=== PATIENT | male | born 1965 | race Caucasian/White ===

== ENCOUNTER → 2020-07-01 | Outpatient (CLI) | payer OTHER ==
[~2020-07-01] MED LIST: ENOXAPARIN120 MG/0.1 SUBQ; ENOXAPARIN40 MG/0.1 SUBQ; FUROSEMIDE 40 M40 M1 PO; K-DUR10 MEQ PO; LISINOPRIL2.5 MG PO; METOPROLOL SUCC25 M1 PO; ROSUVASTATIN CA20 MG PO; WARFARIN SODIUM1 MG PO; WARFARIN SODIUM5 MG PO
== END ==
LOC: M.LAB 10:44
PROVIDERS: ATTEND Surgery
DX: Z01.812 Encounter for preprocedural laboratory examination (principal); Z20.828 Contact with and (suspected) exposure to other viral communicable diseases

== ENCOUNTER → 2020-07-07 | Day surgery (SDC) | payer OTHER ==
[~2020-07-07] MED LIST changes: +NORCO 5-325 TA1 EAC2 PO
[2020-07-07 06:29] LABS: HEMATOCRIT 41.8 % (42.0-52.0); HEMOGLOBIN 14.6 gm/dL (14.0-18.0); MCH 31.1 pg (26.0-34.0); MCHC 34.9 g/dL (28.0-37.0); MCV 89.1 fL (80.0-100.0); MPV 7.9 fl. (7.2-11.1); RBC 4.68 mil/uL (4.50-6.00); RDW-CV 15.5 % (10.5-14.5)
[2020-07-07 06:39] LABS: CALCIUM 8.4 mg/dL (8.5-10.1); POTASSIUM 3.6 mmol/L (3.5-5.1)
[2020-07-07 06:42] LABS: APTT 30.5 Seconds (25.0-31.3); PROTIME 10.3 Seconds (9.20-11.50)
--- NOTE | 2020-07-07 15:13 | EKG ---
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: [facility] : 1965 Requested By: Memo Schulte Order Number: [id number] Anastasiya MD: Dre Rogers Measurements Intervals Gray Rate: 72 P: 40 OK: 210 QRS: 19 QRSD: 128 T: 74 QT: 413 QTc: 453 Interpretive Statements Sinus rhythm Prolonged OK interval IVCD, consider incomplete left bundle branch block No previous ECG available for comparison Electronically Signed On 07-07-2020 15:13:26 ELECTRIC CRANE OPERATOR by Dre Rogers [email or web address] <ELECTRONICALLY SIGNED> By: Dre Rogers MD, [facility] 07/07/20 1513 9 9 Dre Rogers MD, [facility] /EPI
--- NOTE | 2020-07-10 13:08 | PATH ---
[address] [address] PATHOLOGY RPT PROCEDURE Name: SHABBIR PEDROZA Room: [facility].#: [id number] Admission: 07/07/20 Date of : 61 Discharge: Report #: [id number] Path Case #: [id number] [facility] Accession Number: [id number] . 01 Material submitted: . abdomen - ABDOMINAL FOREIGN BODY . 02 Diagnosis: Gross diagnosis (abdominal foreign body): - Foreign body identified. (DES:ko; 07/09/2020) R 07/09/2020 1541 Local . 02 Electronically signed: . Austen Orozco MD, Pathologist NPI- [id number] . 01 Gross description: . The specimen is received fresh, labeled "Shabbir Pedroza, abdominal foreign body". Received is a segment of mesh-like material with an attached possible segment of clear tubing measuring 4.3 x 3.2 x 0.3 cm in greatest dimensions. Gross photographs are taken. Sections are not submitted. (CAA; 07/08/2020) QAC/QAC 07/08/2020 1535 Local . 02 Pathologist provided ICD-10: K43.6 . 02 CPT . 078737 Specimen Comment: A courtesy copy of this report has been sent to [phone] Specimen Comment: Report sent to Performed at: [address], [place] [address] MD Russell Barrow MD Phone: [phone] Performed at: 02 [facility] [address], [place], [place] [id number] MD Austen Orozco MD Phone: [phone]
--- NOTE | 2020-07-14 13:40 | OP ---
[facility] [address] [place] [address] OPERATIVE REPORT Name: JULIO PEDROZA Room: [facility].#: [id number] Admission: 07/07/20 Attend Phys: Memo Schulte Discharge: Date of : 61 Report #: [id number] THIS REPORT FOR: cc: Samir Martinez MD, Steven W. MD ~ Memo Schulte MD DATE OF SERVICE: 07/07/2020 PREOPERATIVE DIAGNOSIS: Incarcerated recurrent ventral incisional hernia. POSTOPERATIVE DIAGNOSIS: Incarcerated recurrent ventral incisional hernia. OPERATION: 1. Laparoscopic repair of recurrent incarcerated ventral incisional hernia with mesh. 2. Removal of abdominal foreign body. SURGEON: Memo Schulte MD ANESTHESIA: General. ESTIMATED BLOOD LOSS: 10 mL. SPECIMEN: Abdominal foreign body. DESCRIPTION OF PROCEDURE: After informed consent was obtained, the patient was brought to the operating room and placed supine. SCDs were placed and working, preoperative antibiotics were administered, general anesthesia was induced. The abdomen was prepped and draped in the usual sterile fashion. A 5 mm incision was made in the left upper quadrant. A 5 mm trocar was placed under direct vision. Then, under direct vision, I placed a left lower quadrant lateral 10 mm trocar and a right lateral 5 mm trocar. He had incarcerated omentum and pericolonic fat incarcerated in a recurrent hernia. This was a Japanese cheese type hernia. I was able to reduce all of the omentum. Great care was taken to identify all the bowel to make sure there was no bowel in the hernia. Once all of this had been reduced, the entirety of the defects measured approximately 12 x 8 cm. I then inserted a 25 x 20 Bard Ventralight mesh. It was brought up to the abdominal wall. It was tacked with approximately 50 absorbable tacks using the absorbable tacker. I then placed four transfascial 2-0 Ethibond sutures at each corner of the mesh. The mesh laid nice and flat. The defects were widely covered. The ports were then removed under direct vision. The left lateral port was closed with a [id number] [address] OPERATIVE REPORT Name: JULIO PEDROZA Room: [facility]#: [id number] Admission: 07/07/20 Attend Phys: Memo Schulte Discharge: Date of : 61 Report #: [id number] skin was then closed with 4-0 Monocryl. Incisions were dressed with Steri-Strips. COMPLICATIONS: None. DISPOSITION: The patient was taken to recovery in satisfactory condition. <ELECTRONICALLY SIGNED> By: Memo Schulte MD 07/14/20 1340 1026 1032Jogarrick Schulte MD /nt
== END | disposition home or self-care (01) ==
LOC: M.SUR 06:01
PROVIDERS: ATTEND Surgery
DX: K43.0 Incisional hernia with obstruction, without gangrene (principal); Z18.9 Retained foreign body fragments, unspecified material; Z98.890 Other specified postprocedural states; Z79.899 Other long term (current) drug therapy; Z79.01 Long term (current) use of anticoagulants

== ENCOUNTER 2020-11-10 20:01 | Inpatient (IN) | payer OTHER ==
[~2020-11-10] VITALS: Ht 185.4 cm; Wt 154.7 kg
--- NOTE | ~2020-11-10 | EMS ---
[address] [address] EMS Patient Care Report Name: JULIO PEDROZA Room: [address] IN [facility]#: [id number] Admission: 11/10/20 Attend Phys: Teresita Josue MD Discharge: Date of : 61 Report #: [id number] THIS REPORT FOR: //name// Report Transmitted: 11/14/2020 22:02 EMS Care Summary DAVID CEJA Incident [id number] @ 11/14/2020 21:43 Incident Location [address] [place] [address] Patient YADIRA PEDROZA Female, 73 Years 1947-11-03 Patient Address [address] [place] [address] Patient History Direct infection of unspecified joint in infectious and parasitic diseases classified elsewhere, Patient Allergies , Patient Medications Aspirin, Chief Complaint Fall Disposition Transported No Lights/[place] Dispatch Reason Unknown Problem/Person Down Transported To [facility] Narrative [facility] WAS DISPATCHED EMERGENT FOR A UNKNOWN MEDICAL ALARM FOR A 73 Y/O FEMALE. UPON ARRIVAL, ON THE PT WAS FOUND SITTING IN A CHAIR IN THE CARE OF IFD. THE PT WAS AWAKE, ALERT, PINK, WARM, DRY, GCS OF 15. THE PT INDICATES THAT [address] [place] [address] EMS Patient Care Report Name: JULIO PEDROZA Room: [address] [place] [facility]#: [id number] Admission: 11/10/20 Attend Phys: Teresita Josue MD Discharge: Date of : 61 Report #: [id number] SHE WAS WALKING TOWARDS THE BATHROOM WHEN SHE TRIPPED ON THE LIP OF THE DOOR FRAME AND FELL. THE PT HIT HER HEAD ON THE CORNER OF THE DOOR. THE PT HAD NO LOC AND IS NOT ON ANY BLOOD THINNER. THE PT IS NOTED TO HAVE A 2 INCH LACERATION TO THE LEFT SIDE OF HER FOREHEAD NEAR HER EYEBROW. THE LACERATION IS DEEP AND BONE CAN BE SEEN. BLEEDING IS CONTROLLED. A GAUZE PAD WAS PLACED ON HER EYEBROW AND TAPED DOWN. THE PT DENIES ANY DIZZINESS OR NAUSEA. THE PT INDICATES HAVING GENERAL MALAISE AND WEAKNESS BUT THIS STARTED YESTERDAY AFTER HAVING HER SECOND DOSE OF THE COVID-19 VACCINE. THE PT INDICATES THAT WHEN SHE TRIPPED, SHE COULD NOT STABILIZE HERSELF DUE TO THE WEAKNESS IN HER LEGS THAT HAS BEEN THERE SINCE YESTERDAY. THE PT WAS ASSISTED TO THE COT WITH THE WALKER WITH IFD HELP. THE PT WAS THEN PLACED ON THE COT AND LOADED INTO THE AMBULANCE. ONCE IN THE AMBULANCE, A SET OF VITALS AND 4 LEAD WAS DONE (sEE REPORT). THERE WAS NO OTHER DCAP-BTLS NOTED, PUPILS TRICE, LUNG SOUNDS CLEAR. THE PT IS NOTED TO HAVE SLIGHT LEFT SIDE FACIAL DROOP AND WEAKNESS BUT THIS IS NOT ANY DIFFERENT FROM HER NORMAL AND HAS BEEN THIS WAY FOR SEVERAL YEARS. THE PT IS ALSO NOTED TO HAVE SLIGHTLY SLURRED SPEECH BUT THIS IS ALSO HER NORMAL. THE PT IS A GCS OF 15. [facility] WENT EN ROUTE NON-EMERGENT TO [facility]. A RADIO REPORT WAS GIVEN EN ROUTE. THE PT REMAINED STABLE, GCS OF 15, AND VITALS WERE MONITORED. UPON ARRIVAL, THE PT WAS UNLOADED AND TAKEN TO THE ER BED. THE PT WAS MOVED TO THE BED. A HAND OFF REPORT WAS GIVEN. [facility] WAS THEN CLEARED AND RETURNED TO SERVICE. Initial Vitals @22:02SpO2: 97, @22:02SpO2: 96, @22:03SpO2: 96, @22:07SpO2: 95, @22:13SpO2: 95, @22:02 @22:03P: 56,R: 16,BP: 114/47,Revised Trauma: 8, @22:13P: 51,R: 16,BP: 108/42,Revised Trauma: 8, @22:03GCS: 15, @22:13GCS: 15, Assessments @21:52MENTAL:SKIN:HEENT:LUNG SOUNDS:ABDOMEN:PELVIS//GI:EXTREMITIES:PULSE:NEURO: Impression Injury Procedures @21:54Dressing ??? PressureResponse: UnchangedSucceeded@21:54Application of gauze support bandage (procedure)Response: UnchangedSucceeded@22:023-Lead ECGResponse: [place] [address] EMS Patient Care Report Name: JULIO PEDROZA Room: [address] IN ..#: [id number] Admission: 11/10/20 Attend Phys: Teresita Josue MD Discharge: Date of : 61 Report #: [id number] Timeline 21:41,Dispatch Notified 21:41,Psap Call 21:42,Call Received 21:43,Dispatched 21:43,En Route 21:50,On Scene 21:52,At Patient 21:54,Dressing ??? Pressure,Response: UnchangedSucceeded, 21:54,Application of gauze support bandage (procedure),Response: UnchangedSucceeded, 22:02,3-Lead ECG,Response: UnchangedSucceeded, 22:02,BP: / M,PULSE: ,RR: R,SPO2: 97 Ox,ETCO2: ,BG: ,PAIN: ,GCS: , 22:02,BP: / M,PULSE: ,RR: R,SPO2: 96 Ox,ETCO2: ,BG: ,PAIN: ,GCS: , 22:02,BP: / M,PULSE: ,RR: R,SPO2: Ox,ETCO2: ,BG: ,PAIN: ,GCS: , 22:03,BP: / M,PULSE: ,RR: R,SPO2: 96 Ox,ETCO2: ,BG: ,PAIN: ,GCS: , 22:03,BP: 114/47 M,PULSE: 56,RR: 16 R,SPO2: Ox,ETCO2: ,BG: ,PAIN: ,GCS: , 22:03,BP: / M,PULSE: ,RR: R,SPO2: Ox,ETCO2: ,BG: ,PAIN: ,GCS: 15, 22:04,Depart Scene 22:07,BP: / M,PULSE: ,RR: R,SPO2: 95 Ox,ETCO2: ,BG: ,PAIN: ,GCS: , 22:13,BP: / M,PULSE: ,RR: R,SPO2: 95 Ox,ETCO2: ,BG: ,PAIN: ,GCS: , 22:13,BP: 108/42 M,PULSE: 51,RR: 16 R,SPO2: Ox,ETCO2: ,BG: ,PAIN: ,GCS: , 22:13,BP: / M,PULSE: ,RR: R,SPO2: Ox,ETCO2: ,BG: ,PAIN: ,GCS: 15, 22:18,At Destination 22:31,Call Closed Disclaimer v1.1 Copyright 2020 [employer] This EMS Care Summary contains data elements from the applicable legal record (which may be displayed differently). It is designed to provide pertinent information for the following purposes: continuity of care, clinical quality, and state data reporting. The complete legal record is available to ED staff and administrators of the receiving hospital in [employer]'s Patient Tracker. All data is provided "as is."
[2020-11-10 20:08] VITALS: BP 147/85
[2020-11-10 20:33] LABS: ABSOLUTE LYMPHOCYTES 0.7 thou/uL (0.8-5.3); ABSOLUTE MONOCYTES 0.3 thou/uL (0.0-1.2); ABSOLUTE NEUTROPHILS 2.3 thou/uL (1.6-8.1); BASOPHILS 0.4 %; EOSINOPHILS 0.3 %; HEMATOCRIT 40.8 % (42.0-52.0); LYMPHOCYTES 22.5 %; MCH 29.3 pg (26.0-34.0); MCHC 34.3 g/dL (28.0-37.0); MCV 85.5 fL (80.0-100.0); NUCLEATED RBCS 0 /100WBC; PLATELET COUNT* 144 thou/uL (150-400); POLYS 68.8 %; RBC 4.78 mil/uL (4.50-6.00); RDW-CV 15.3 % (10.5-14.5); WBC 3.3 thou/uL (4.0-11.0)
[2020-11-10 20:42] LABS: CALCIUM 8.4 mg/dL (8.5-10.1); CREATININE 1.1 mg/dL (0.6-1.3); POTASSIUM 3.9 mmol/L (3.5-5.1)
[2020-11-10 20:45] LABS: APTT 41.6 Seconds (25.0-31.3); PROTIME 20.3 Seconds (9.20-11.50)
[2020-11-10 20:53] LABS: ALBUMIN 3.3 g/dL (3.4-5.0); TOTAL BILIRUBIN 0.7 mg/dL (<0.1-1.0); TOTAL PROTEIN 7.7 g/dL (6.4-8.2)
[2020-11-10 23:31] VITALS: BP 123/73
[2020-11-10 23:45] VITALS: BP 130/88
--- NOTE | 2020-11-11 05:07 | NUR ---
PT ADMIT TO ROOM 232. ALERT ORIENTED X 4. UP AD JOCELYN. O2 AT 2 LITERS NC. TELEMETRY SHOWS SR 1ST DEGREE AVB. PT HEART VALVE REPLACEMENT HX. PT CONCERNED ABOUT NOT TAKING COUMADIN. DR NOTIFIED ORDER OBTAINED. PT TOOK YESTERDAYS DOSE LATE.
[2020-11-11 05:17] LABS: HEMATOCRIT 41.7 % (42.0-52.0); MCHC 33.5 g/dL (28.0-37.0); MCV 86.3 fL (80.0-100.0); MPV 8.6 fl. (7.2-11.1); RBC 4.83 mil/uL (4.50-6.00); RDW-CV 15.1 % (10.5-14.5); WBC 2.1 thou/uL (4.0-11.0)
[2020-11-11 05:23] VITALS: BP 131/75
[2020-11-11 05:29] LABS: CALCIUM 8.5 mg/dL (8.5-10.1); POTASSIUM 4.6 mmol/L (3.5-5.1)
[2020-11-11 08:00] VITALS: BP 118/78
--- NOTE | 2020-11-11 08:32 | EKG ---
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: ALVIN : 1965 Requested By: Jose Robison Order Number: [id number] MD: Ky Davis Measurements Intervals [place] Rate: 102 P: 34 PA: 190 QRS: 10 QRSD: 124 T: 103 QT: 364 QTc: 475 Interpretive Statements Sinus tachycardia Atrial premature complex Nonspecific intraventricular conduction delay Borderline repolarization abnormality Compared to ECG 07/07/2020 06:30:16 Atrial premature complex(es) now present Sinus rhythm no longer present First degree AV block no longer present Electronically Signed On 11-11-2020 8:32:17 CDT by Ky Davis [email or web address] <ELECTRONICALLY SIGNED> By: Ky Davis MD, FACC 11/11/20 0832 18 18 Ky Davis MD, [facility] /EPI
[2020-11-11 11:32] VITALS: BP 118/78
--- NOTE | 2020-11-11 12:41 | NUR ---
Nutrition: Pt admitted with COVID. Consult received for obesity. Wt: 341# bed wt, but admit wt was 325#. Regular diet ordered. On 4L O2. BG elevated 376, albumin 3.3. Meds: insulin, warfarin. Due to COVID restrictions, will not educate on wt loss at this time. Consider mild nutrition risk. RD available.
--- NOTE | 2020-11-11 16:11 | NUR ---
INITIAL ASSESSMENT: PT STATED HE LIVES HOME. "I ABLE BODY. 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 PT DENIES HX WITH SNF OR HH. PT CONT WITH COVID THERAPIES. PT IS CURRENTLY O 4L OF 02. CM TO CONT TO FOLLOW TO ASSESS O2 NEEDS.
[2020-11-11 16:41] VITALS: BP 118/78
[2020-11-11 17:33] VITALS: BP 120/73; BP 124/73; BP 126/82
--- NOTE | 2020-11-11 19:00 | NUR ---
Pt received Remdesivir and convalescent plasma today. BGs upper 300s today; received 10 units NPH in am, and 12 units Lispro with lunch and dinner; has Lantus ordered for HS. VSS. O2 sats low 90s on 4L most of the shift, then 94% late in shift; O2 decreased to 3L per NC. Up ad deepa in room. Will continue to monitor.
[2020-11-11 20:00] VITALS: BP 129/78
[2020-11-12] VITALS: BP 128/70
--- NOTE | 2020-11-12 01:49 | NUR ---
PT ALERT ORIENTED. WOUND ON L 3RD TOE PICTURED. WOUND CARE NURSE CONSULTED. PT STATED HE HURT IT ON A NAIL AT HOME. INITAL O2 SAT 88% ON 3 LITERS. O2 INCREASED TO 4 LITERS NC O2 SAT UP TO 90-91% CORRECTIONS IDENTIFICATION TECHNICIAN TRACING SR BBB 1ST DEGREE AVB. COUMADIN ORDERED WITH NEW INSULIN ORDERS.
[2020-11-12 04:00] VITALS: BP 134/70
[2020-11-12 04:09] LABS: HEMATOCRIT 40.3 % (42.0-52.0); HEMOGLOBIN 13.6 gm/dL (14.0-18.0); MCH 28.9 pg (26.0-34.0); MCHC 33.7 g/dL (28.0-37.0); MCV 85.9 fL (80.0-100.0); RBC 4.7 mil/uL (4.50-6.00); RDW-CV 15.2 % (10.5-14.5); WBC 4.3 thou/uL (4.0-11.0)
[2020-11-12 04:20] LABS: INR 2.3; PROTIME 23.3 Seconds (9.20-11.50)
[2020-11-12 04:27] LABS: ALBUMIN 3.1 g/dL (3.4-5.0); CALCIUM 8.8 mg/dL (8.5-10.1); CREATININE 0.9 mg/dL (0.6-1.3); MAGNESIUM 2.2 mg/dL (1.8-2.4); POTASSIUM 4.1 mmol/L (3.5-5.1); TOTAL BILIRUBIN 0.5 mg/dL (<0.1-1.0); TOTAL PROTEIN 7.4 g/dL (6.4-8.2)
[2020-11-12 07:29] VITALS: BP 106/72
[2020-11-12 12:00] VITALS: BP 97/63
--- NOTE | 2020-11-12 15:27 | NUR ---
PLAN OF CARE: PT REMAINS TELE STATUS. PT CURRENTLY ON 4L O2 AND DID NOT HAVE HOME OXYGEN PRIOR TO ADMIT. PT MAY NEED HOME OXYGEN AT D/C POSSIBLY TUESDAY. CM WILL REMAIN AVAILABLE TO ASSIST AND FOLLOW NEEDED.
[2020-11-12 16:00] VITALS: BP 104/44
--- NOTE | 2020-11-12 16:41 | NUR ---
WOUND NURSE: PATIENT SEEN TO ADDRESS RIGHT FOOT 3RD TOE DFU MEASURING 0.5 X 0.5 X 0.2 CM. NO ACTIVE DRAINAGE. CALLOUSED PERIWOUND. CRUSTED RED, NONGRANULATING TISSUE IN THE WOUND BED. I SPOKE WITH DR. ELENA WHO AGREED TO PODIATRY CONSULT TO SEE PATIENT. CLEANSED WITH SOAP AND WATER, RINSED, PATTED DRY. APPLIED BETADINE SWAB, COVERED WITH BANDAID. DR. FELIPES XRAYS OF FOOT. PATIENT PROVIDED INSTRUCTION PERTAINING TO MEASURES TO PROMOTE HEALING AND ON POTENTIAL COMPLICATIONS TO MONITOR FOR AND REPORT. STATES HE UNDERSTANDS.
--- NOTE | 2020-11-12 18:45 | NUR ---
Pt in Afib with PVCs. Home doses of metoprolol and lisinopril started this am, and already on warfarin per home regimen. HR 80s to low 100s, but up to 120s with activity at times. O2 remains at 4L per NC, humidifier added for comfort. BGs steadily increased today as well; [address] Simon paged, no new orders received; however, Dr. Josue had ordered increased dose of Lantus to start tonight. VSS, no complaints. Will continue to monitor.
[2020-11-13 02:06] LABS: GLYCOHEMOGLOBIN (HGB A1C) 12.4 % (4.8-5.6)
[2020-11-13 04:00] VITALS: BP 101/44
[2020-11-13 04:18] LABS: HEMATOCRIT 41.2 % (42.0-52.0); MCH 29.1 pg (26.0-34.0); MCV 85.7 fL (80.0-100.0); MPV 8.2 fl. (7.2-11.1); RBC 4.81 mil/uL (4.50-6.00); RDW-CV 15.6 % (10.5-14.5); WBC 6.7 thou/uL (4.0-11.0)
[2020-11-13 04:32] LABS: CALCIUM 8.4 mg/dL (8.5-10.1); CREATININE 0.9 mg/dL (0.6-1.3); POTASSIUM 3.9 mmol/L (3.5-5.1)
[2020-11-13 04:35] LABS: PROTIME 36.3 Seconds (9.20-11.50)
[2020-11-13 04:42] LABS: INR 3.7
[2020-11-13 08:17] VITALS: BP 105/49
[2020-11-13 12:33] VITALS: BP 122/56
--- NOTE | 2020-11-13 13:54 | NUR ---
PLAN OF CARE: PT REMAINS TELE STATUS, AND CURRENTLY ON 6L O2. PT DID NOT HAVE HOME OXYGEN PRIOR TO ADMIT AND MAY NEED HOME OXYGEN AT D/C. PLAN TO ATTEMPT TO WEAN PT'S O2 NEEDS PRIOR TO D/C. CM WILL REMAIN AVAILABLE TO ASSIST AND FOLLOW NEEDED.
--- NOTE | 2020-11-13 16:47 | NUR ---
Pt reports he has been coughing up more phlegm today, which appears thick, green, and blood-tinged. Pt reports he is feeling better and has more energy, but he's concerned about his oxygenation. Sats 88-90 on 6L O2 (up from 4L this morning). Pt's 3rd toe on Rt foot debrided at bedside per Dr. Triana; post-debridment picture taken. Pt now has orthopedic shoe on Rt foot. BGs continue to be elevated (upper 200s-300s). Adjustments made to insulin regimen. Will continue to monitor.
[2020-11-13 18:17] VITALS: BP 115/73
[2020-11-13 21:00] VITALS: BP 123/86
[2020-11-14] VITALS: BP 110/78
[2020-11-14 04:00] VITALS: BP 107/77
[2020-11-14 05:15] LABS: HEMATOCRIT 41.3 % (42.0-52.0); HEMOGLOBIN 14.1 gm/dL (14.0-18.0); MCH 29.2 pg (26.0-34.0); MCV 85.7 fL (80.0-100.0); MPV 8.7 fl. (7.2-11.1); RBC 4.83 mil/uL (4.50-6.00); RDW-CV 15.4 % (10.5-14.5); WBC 6.1 thou/uL (4.0-11.0)
[2020-11-14 05:20] LABS: CALCIUM 8.7 mg/dL (8.5-10.1); CREATININE 0.8 mg/dL (0.6-1.3); POTASSIUM 3.8 mmol/L (3.5-5.1)
--- NOTE | 2020-11-14 06:41 | NUR ---
Alert and oriented x 4. He started on 8L high flow nasal canula and was not sating well. I did let RT know and she did turn him up to 10L high flow canula. Vitals have been stable. He denies pain. Rt foot is wrapped in heladio bandage and up on pillow. He had his 3rd toe on rt foot debrided. This am it was difficult to get his O2 sat and RT was notified. She did obtain a sat on his ear and also his toe. She turned him down to 7L high flow nasal canula. He has slept well.
[2020-11-14 08:00] VITALS: BP 110/63
[2020-11-14 12:58] VITALS: BP 127/85
--- NOTE | 2020-11-14 13:49 | NUR ---
WOUND NURSE: PATIENT SEEN FOR FOLLOW UP ASSESSMENT OF RIGHT 3RD TOE DFU. MEASURES 0.4 X 0.4 X 0.3 CM. CONTAINS RED, NONGRANULATING TISSUE IN THE WOUND BED. SMALL AMOUNT OF SANGUINOUS DRAINAGE. LOCALIZED REDNESS. NO COMPLAINTS OF PAIN. PATIENT PROVIDED WITH DRESSING CHANGE INSTRUCTIONS, REPORTABLE SIGNS AND SYMPTOMS WITH GOOD UNDERSTANDING ACHIEVED. PATIENT PROVIDED WITH APPOINTMENT TO SEE DR. ONESIMO DPM IN [facility] ON 12/01/20 AT 1300. HE STATES HE UNDERSTANDS.
--- NOTE | 2020-11-14 15:24 | NUR ---
PLAN OF CARE: PT REMAINS TELE STATUS. PT COVID POSITIVE. PT O2 NEEDS INCREASED TO 8L. PT MAY NEED HOME OXYGEN AT D/C. NO OTHER CM D/C PLANNING NEEDS ANTICIPATED. CM WILL REMAIN AVAILABLE TO ASSIST AND FOLLOW NEEDED.
[2020-11-14 15:26] LABS: INR 4.2; PROTIME 40.7 Seconds (9.20-11.50)
--- NOTE | 2020-11-14 17:44 | NUR ---
PT A&OX4 VSS. PT UP AD JOCELYN. PT REMAINS ON 7L O2 BY NASAL CANNULA. PT REPORTS PRODUCTIVE COUGH. A FIB ON MONITOR. DRESSING TO R FOOR CHANGED BY WOUND NURSE THIS SHIFT. DRESSING REMAINS C/D/I. EDIS MIDLINE PATENT, DRESSING C/D/I. PT IS ACCUCHECK, INSULIN ADMINISTERTED DIRECTED. PT RESTS IN ROOM WITH CALL LIGHT IN REACH. WILL CONTINUE TO MONITOR
[2020-11-14 18:13] VITALS: BP 113/62
[2020-11-14 20:53] VITALS: BP 117/80
[2020-11-15 00:28] VITALS: BP 109/60
[2020-11-15 03:46] LABS: CALCIUM 8.7 mg/dL (8.5-10.1)
[2020-11-15 03:47] LABS: HEMATOCRIT 43.7 % (42.0-52.0); HEMOGLOBIN 14.5 gm/dL (14.0-18.0); MCH 28.7 pg (26.0-34.0); MCHC 33.2 g/dL (28.0-37.0); MCV 86.4 fL (80.0-100.0); MPV 8.7 fl. (7.2-11.1); RBC 5.06 mil/uL (4.50-6.00); RDW-CV 15.5 % (10.5-14.5); WBC 6.9 thou/uL (4.0-11.0)
[2020-11-15 03:48] LABS: INR 4.3; PROTIME 41.9 Seconds (9.20-11.50)
[2020-11-15 04:53] VITALS: BP 147/92
--- NOTE | 2020-11-15 06:13 | NUR ---
PT ON , ALERT AND ORIENTED, RECEIVED ALL MEDS SCHEDULED. NO REPORTS OF WORSENING OF SOB, NO N/V OR PAIN. DRESSING ON RIGHT FOOT IS C/D/I. AFIB ON MONITOR. UP AD JOCELYN, SURGICAL SHOE FOR RIGHT FOOT AVAILABLE.
[2020-11-15 09:00] VITALS: BP 143/77
[2020-11-15 12:00] VITALS: BP 103/70
[2020-11-15 16:00] VITALS: BP 96/66
[2020-11-15 20:30] VITALS: BP 101/61
--- NOTE | 2020-11-15 20:30 | NUR ---
patient report given to night manager nurse. patient resting in room with O2 at 6L NC, SLIV, up ad deepa. All belongings and call light within reach.
[2020-11-16 00:51] VITALS: BP 94/58
[2020-11-16 04:11] VITALS: BP 94/46
[2020-11-16 04:17] LABS: HEMATOCRIT 44.1 % (42.0-52.0); HEMOGLOBIN 15.1 gm/dL (14.0-18.0); MCH 29.3 pg (26.0-34.0); MCHC 34.2 g/dL (28.0-37.0); MCV 85.7 fL (80.0-100.0); MPV 8.1 fl. (7.2-11.1); RBC 5.14 mil/uL (4.50-6.00); RDW-CV 15.4 % (10.5-14.5); WBC 9.6 thou/uL (4.0-11.0)
[2020-11-16 04:28] LABS: INR 3.1; PROTIME 31.2 Seconds (9.20-11.50)
[2020-11-16 04:36] LABS: ALBUMIN 2.7 g/dL (3.4-5.0); CALCIUM 8.9 mg/dL (8.5-10.1); CREATININE 0.9 mg/dL (0.6-1.3); MAGNESIUM 2.1 mg/dL (1.8-2.4); POTASSIUM 3.9 mmol/L (3.5-5.1); TOTAL BILIRUBIN 0.8 mg/dL (<0.1-1.0); TOTAL PROTEIN 6.7 g/dL (6.4-8.2)
--- NOTE | 2020-11-16 05:11 | NUR ---
PT SLEPT MOST OF SHIFT. ASSESSMENT DOCUMENTED. MEDS GIVEN PER E-SEP. MIDLINE PATENT. NO REPORTS OF PAIN THIS SHIFT. DRESSING TO 3RD TOE REMAINS C/D/I, SURGICAL SHOE AT BEDSIDE. PT ON 7L NC THIS SHIFT. PT ABLE TO MAKE NEEDS KNOWN. WILL CONTINUE WITH PLAN OF CARE.
[2020-11-16 08:00] VITALS: BP 105/70
[2020-11-16 14:26] VITALS: BP 83/63
--- NOTE | 2020-11-16 20:09 | NUR ---
patient report given to overnight houseperson nurse. Patient resting in room in bed, with call light within reach, all belongings within reach. SLIV, 4 L O2 per NC.
[2020-11-16 20:30] VITALS: BP 101/65
[2020-11-16 23:48] VITALS: BP 81/56
[2020-11-17] VITALS (23 sets, daily range): BP systolic 93–128; BP diastolic 47–85
[2020-11-17 04:45] LABS: HEMATOCRIT 45.2 % (42.0-52.0); HEMOGLOBIN 15.4 gm/dL (14.0-18.0); MCH 29.3 pg (26.0-34.0); MCHC 34.1 g/dL (28.0-37.0); MPV 8.2 fl. (7.2-11.1); RBC 5.25 mil/uL (4.50-6.00); RDW-CV 15.7 % (10.5-14.5)
[2020-11-17 04:55] LABS: INR 2.1; PROTIME 20.9 Seconds (9.20-11.50)
[2020-11-17 04:59] LABS: ALBUMIN 2.7 g/dL (3.4-5.0); CALCIUM 8.7 mg/dL (8.5-10.1); CREATININE 1.1 mg/dL (0.6-1.3); POTASSIUM 4.1 mmol/L (3.5-5.1); TOTAL BILIRUBIN 0.9 mg/dL (<0.1-1.0)
--- NOTE | 2020-11-17 05:32 | NUR ---
PT SLEPT ON AND OFF THIS SHIFT. ASSESSMENT DOCUMENTED. MEDS GIVEN PER E-SEP. IV PATENT. NO REPORTS OF PAIN THIS SHIFT. DRESSING REMAINED C/D/I. ISOLATION MAINTAINED. PT ABLE TO MAKE NEEDS KNOWN. WILL CONTINUE WITH PLAN OF CARE.
--- NOTE | 2020-11-17 06:59 | NUR ---
PT HAD 8 BEAT RUN OF V-TACH ABOUT 0623
[2020-11-17] MEDS ORDERED: GLUCOPHAGE500 MG PO (08:06)
[2020-11-17] MEDS ORDERED: PREDNISONE 10 M10 M1 PO (08:06)
[2020-11-17] MEDS ORDERED: GLYBURIDE 5 MG T5 M1 PO (08:06)
[2020-11-17] MEDS ORDERED: SORINE 80 MG TA80 M1 PO (08:06)
[2020-11-17] MEDS ORDERED: TEST STRIPS1 EACH SUBQ (08:10)
--- NOTE | 2020-11-17 12:29 | NUR ---
Nutrition: reassessment. Consult for DM diet. Pt admitted with COVID, in COVID isolation. Wt: 341#. BG 161, albumin 2.7. On insulin with hopes to d/c insulin at discharge. Home on metformin. RD restricted diet to CHO controlled. No other nutrition interventions at this time. Mild risk. GOALS: better BG control.
--- NOTE | 2020-11-17 15:15 | NUR ---
PLAN OF CARE: PLAN HAD BEEN FOR THE PT TO D/C HOME TODAY POST CARDIO VERSION. HOWEVER PT DESATTING AND REQUIRED INCREASED OXYGEN AND CURRENTLY 50% ON VENTI MASK. MAY NEED TO HOLD PT'S D/C TODAY PER RN. PT WILL NEED R.T. REST AND EXERCISE TESTING PRIOR TO D/C TO DETERMINE HOME OXYGEN NEEDS. CM WILL REMAIN AVAILABLE TO ASSIST AND FOLLOW NEEDED.
--- NOTE | 2020-11-17 15:21 | EKG ---
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: ANMOL : 1965 Requested By: Ky Davis Order Number: [id number] Anastasiya MD: Dre Rogers Measurements Intervals [place] Rate: 103 P: 59 TX: 160 QRS: 6 QRSD: 128 T: 46 QT: 408 QTc: 534 Interpretive Statements Sinus tachycardia with PACs Nonspecific intraventricular conduction delay Compared to ECG 11/10/2020 20:19:19 No significant change Electronically Signed On 11-17-2020 15:21:30 CDT by Dre Rogers [email or web address] <ELECTRONICALLY SIGNED> By: Dre Rogers MD, FACC 11/17/20 1521 0423 0423 Dre Rogers MD, [facility] /EPI
--- NOTE | 2020-11-17 15:28 | EKG ---
[place] [address] ELECTROCARDIOGRAM REPORT Name: JULIO PEDROZA [place] Room: [address] ADM IN M.R.#: [id number] Admission: 11/10/20 Attend Phys: Teresita Josue MD Discharge: Date of : 61 Date of Service: 11/17/20 0456 Report #: [id number] THIS REPORT FOR: //name// [facility] Test Date: 2020-11-17 Test Time: 04:56:52 Pat Name: JULIO PEDROZA Department: Room: [address] Gender: M Account Services Representative: ANMOL : 1965 Requested By: Ky Davis Order Number: [id number] Reading MD: Dre Rogers Measurements Intervals [place] Rate: 96 P: NV: QRS: 1 QRSD: 126 T: 62 QT: 423 QTc: 535 Interpretive Statements Atrial fibrillation Nonspecific intraventricular conduction delay Borderline repolarization abnormality Compared to ECG 11/10/2020 20:19:19 Sinus tachycardia no longer present Atrial premature complex(es) no longer present Electronically Signed On 11-17-2020 15:28:42 CDT by Dre Rogers [email or web address] <ELECTRONICALLY SIGNED> By: Dre Rogers MD, [facility] 11/17/20 1528 0456 0456 Dre Rogers MD, [facility] /EPI
--- NOTE | 2020-11-17 18:03 | NUR ---
PT DCD TO HOME IN STABLE CONDITION.DC INSTRUCTIONS,GLUCOMETER EDUCATION,PRESCRIPTIONS,FOLLOW UP APPTS,QUARANTINE INSTRUCTIONS AND CARDIAC CARE REVIEWED WITH PT AND PT REPORTS UNDERSTANDING WITHOUT FURTHER QUESTIONS.PT TAKEN BY WC TO FAMILY VEHICLE WITH ALL OF BELONGINGS BY NURSING STAFF.
--- NOTE | 2020-11-18 16:29 | CON ---
[address] [address] CONSULTATION Name: JULIO PEDROZA Room: [address] IN [place].#: [id number] Admission: 11/10/20 Attend Phys: Teresita Josue MD Discharge: 11/17/20 Date of : 61 Report #: [id number] THIS REPORT FOR: cc: Samir Martinez MD, Steven W. MD Blick, David R. MD [facility] ~ DOC #: [id number] Jean-Claude Mast MD [facility] DATE OF CONSULTATION: 11/14/2020 CARDIOLOGY CONSULTATION HISTORY OF PRESENT ILLNESS: The patient is a 55-year-old white male who I was asked to see in the hospital today after he was noted to be in atrial fibrillation. The patient has an extensive past medical history. He had aortic valve replacement using a [employer] valve in 2012 at . He has been followed by since that time. He apparently saw his onsite health coach at about a month ago and was noted to have intermittent atrial fibrillation. He has been on metoprolol in the past. Recently, he has been short of breath and has been coughing. He went to the emergency room 5 days ago and tested positive for COVID-19. Two days ago, he went into atrial fibrillation. Cardiology consultation was requested. He denied any chest pain. He has been short of breath and running a fever. He notes occasional irregular heartbeat. PAST SURGICAL HISTORY: He has had hernia surgery. MEDICATIONS ON ADMISSION: Consisted of; Lipitor, Trulicity, Jardiance, insulin, Synthroid, Ativan, losartan. He had a previous intolerance to morphine and codeine. FAMILY HISTORY: Negative for heart disease. SOCIAL HISTORY: He is single. 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 He does not exercise on a regular basis. No smoking. Rarely drinks alcohol. REVIEW OF SYSTEMS: He is overweight. No history of stroke, asthma. He had sleep apnea in the past, could not tolerate CPAP. No liver disease, kidney disease, cancer, psychiatric illness, chronic skin condition. PHYSICAL EXAMINATION: GENERAL: Revealed middle-aged male, lying in bed, appeared in no distress. VITAL SIGNS: He had a blood pressure of 130/70, pulse is 100 and irregular. He was afebrile. HEENT: Eyes anicteric. Conjunctivae pink. Mucous membranes moist. NECK: Veins not distended[place] [address] CONSULTATION Name: JULIO PEDROZA Room: [address]#: [id number] Admission: 11/10/20 Attend Phys: Teresita Josue MD Discharge: 11/17/20 Date of : 61 Report #: [id number] CHEST: Coarse breath sounds bilaterally. CARDIOVASCULAR: Irregular rhythm. Grade 2 systolic ejection murmur. Metallic aortic and closing sound. ABDOMEN: Obese. EXTREMITIES: No pitting edema. Dorsalis pedis pulse 3+. SKIN: Cool and dry. NEUROLOGIC: Nonfocal. IMAGING: His ECG on admission showed a sinus rhythm on admission. Current ECG shows atrial fibrillation with controlled ventricular response rate. The patient had chest x-ray on admission that showed cardiomegaly, small effusion, mild interstitial markings. LABORATORY DATA: Sodium 138, creatinine 0.8. Troponin 0.6. INR 3.7, hemoglobin 6.1. IMPRESSION AND RECOMMENDATIONS: 1. Atrial fibrillation. I would recommend switching from metoprolol to sotalol. If he remains in atrial fibrillation, we will consider cardioversion. I will continue chronic anticoagulation and maintain his INR at 2-3. 2. Previous aortic valve replacement. Appears to be functioning normally. 3. Hypertension. The patient has been on ARB. 4. Obesity. 5. History of sleep apnea. Jean-Claude Mast MD [facility] JUAN F/ROLANDO <ELECTRONICALLY SIGNED> By: Jean-Claude Mast MD, [facility] 11/18/20 1629 1217 [id number]-Claude Mast MD, [facility] /nt
== END 2020-11-17 17:55 | disposition home or self-care (01) | DRG 166 ==
LOC: M.ERS 20:01 → M.2W 20:58 → M.TBA-ER 20:58 → M.2W 23:33
PROVIDERS: Family Medicine; Internal Medicine; Internal Medicine Cardiovascular Disease; ADMIT Family Medicine; ATTEND Family Medicine
PROC: XW13325 Transfusion of Convalescent Plasma (Nonautologous) into Peripheral Vein, Percutaneous Approach, New Technology Group 5 (ICD-10-PCS; 2020-11-11)
PROC: 05HF33Z Insertion of Infusion Device into Left Cephalic Vein, Percutaneous Approach (ICD-10-PCS; 2020-11-11)
PROC: B54NZZA Ultrasonography of Left Upper Extremity Veins, Guidance (ICD-10-PCS; 2020-11-11)
PROC: XW033E5 Introduction of Remdesivir Anti-infective into Peripheral Vein, Percutaneous Approach, New Technology Group 5 (ICD-10-PCS; 2020-11-12)
PROC: 0JBQ0ZZ Excision of Right Foot Subcutaneous Tissue and Fascia, Open Approach (ICD-10-PCS; 2020-11-12)
PROC: 5A0935A Assistance with Respiratory Ventilation, Less than 24 Consecutive Hours, High Flow/Velocity Cannula (ICD-10-PCS; principal; 2020-11-13)
PROC: 5A0935A Assistance with Respiratory Ventilation, Less than 24 Consecutive Hours, High Flow/Velocity Cannula (ICD-10-PCS; 2020-11-14)
DX: U07.1 COVID-19 (principal); J96.01 Acute respiratory failure with hypoxia; J12.82 Pneumonia due to coronavirus disease 2019; R65.11 Systemic inflammatory response syndrome (SIRS) of non-infectious origin with acute organ dysfunction; Z68.42 Body mass index [BMI] 45.0-49.9, adult; E87.1 Hypo-osmolality and hyponatremia; G47.30 Sleep apnea, unspecified; E66.01 Morbid (severe) obesity due to excess calories; I48.0 Paroxysmal atrial fibrillation; E11.621 Type 2 diabetes mellitus with foot ulcer; L97.519 Non-pressure chronic ulcer of other part of right foot with unspecified severity; E11.42 Type 2 diabetes mellitus with diabetic polyneuropathy; Z95.4 Presence of other heart-valve replacement; Z79.01 Long term (current) use of anticoagulants; Z79.899 Other long term (current) drug therapy

== ENCOUNTER → 2020-12-01 | Outpatient (CLI) | payer OTHER ==
[~2020-12-01] MED LIST changes: +GLUCOPHAGE500 MG PO; +GLYBURIDE 5 MG T5 M1 PO; +PREDNISONE 10 M10 M1 PO; +SORINE 80 MG TA80 M1 PO; +TEST STRIPS1 EACH SUBQ
== END ==
LOC: M.WC 13:00
PROVIDERS: ATTEND Podiatrist Foot & Ankle Surgery
DX: E11.621 Type 2 diabetes mellitus with foot ulcer (principal); L97.512 Non-pressure chronic ulcer of other part of right foot with fat layer exposed; L84 Corns and callosities; L03.031 Cellulitis of right toe; Z95.4 Presence of other heart-valve replacement; Z79.84 Long term (current) use of oral hypoglycemic drugs

== ENCOUNTER 2020-12-05 20:56 | Inpatient (IN) | payer OTHER ==
[~2020-12-05] VITALS: Ht 185.4 cm; Wt 149.7 kg
[2020-12-05 21:06] VITALS: BP 115/54
[2020-12-05 21:33] LABS: INFLUENZA A ANTIGEN Negative (Negative); INFLUENZA B ANTIGEN Negative (Negative)
[2020-12-05 21:54] LABS: ABSOLUTE BASOPHILS 0.1 thou/uL (0.0-0.2); ABSOLUTE EOSINOPHILS 0.3 thou/uL (0.0-0.7); ABSOLUTE LYMPHOCYTES 1.7 thou/uL (0.8-5.3); ABSOLUTE MONOCYTES 0.7 thou/uL (0.0-1.2); ABSOLUTE NEUTROPHILS 8.1 thou/uL (1.6-8.1); BASOPHILS 0.6 %; EOSINOPHILS 2.5 %; HEMATOCRIT 37.3 % (42.0-52.0); HEMOGLOBIN 12.8 gm/dL (14.0-18.0); LYMPHOCYTES 15.3 %; MCH 30.1 pg (26.0-34.0); MCHC 34.4 g/dL (28.0-37.0); MCV 87.6 fL (80.0-100.0); MONOCYTES 6.6 %; MPV 8.3 fl. (7.2-11.1); NUCLEATED RBCS 0 /100WBC; PLATELET COUNT* 213 thou/uL (150-400); RBC 4.26 mil/uL (4.50-6.00); RDW-CV 16.3 % (10.5-14.5); WBC 10.8 thou/uL (4.0-11.0)
[2020-12-05 21:57] LABS: CALCIUM 8.9 mg/dL (8.5-10.1); CREATININE 1.4 mg/dL (0.6-1.3); POTASSIUM 3.7 mmol/L (3.5-5.1)
[2020-12-05 22:05] LABS: ALBUMIN 2.6 g/dL (3.4-5.0); TOTAL BILIRUBIN 0.9 mg/dL (<0.1-1.0); TOTAL PROTEIN 7.4 g/dL (6.4-8.2)
[2020-12-05 23:38] LABS: INR 3.3; PROTIME 32.4 Seconds (9.20-11.50)
[2020-12-06 02:45] VITALS: BP 97/44
[2020-12-06 02:56] VITALS: BP 114/74
[2020-12-06 08:25] VITALS: BP 99/62
--- NOTE | 2020-12-06 10:23 | EKG ---
[place] [address] ELECTROCARDIOGRAM REPORT Name: JULIO PEDROZA Room: [address] M.R.#: [id number] Admission: 12/05/20 Attend Phys: Andrea John Discharge: Date of : 61 Date of Service: 12/05/202134 Report #: [id number] THIS REPORT FOR: //name// [facility] ED Test Date: 2020-12-05 Test Time: 21:35:15 Pat Name: JULIO PEDROZA Department: Room: 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 : 1965 Requested By: Niharika Rojas Order Number: [id number] MD: Jean-Claude Mast Measurements Intervals Adrian Rate: 71 P: -10 VA: 226 QRS: 11 QRSD: 125 T: 66 QT: 450 QTc: 490 Interpretive Statements Sinus rhythm Prolonged VA interval IVCD Compared to ECG 11/17/2020 04:56:52 Atrial fibrillation no longer present Electronically Signed On 12-06-2020 10:23:11 CDT by Jean-Claude Mast [email or web address] <ELECTRONICALLY SIGNED> By: Jean-Claude Mats MD, [facility] 12/06/20 1023 34 Jean-Claude Mast MD, [facility] /EPI
[2020-12-06 12:15] VITALS: BP 102/64
[2020-12-06 17:38] VITALS: BP 121/61
[2020-12-06 20:00] VITALS: BP 108/59
[2020-12-07] VITALS: BP 100/34
[2020-12-07 04:00] VITALS: BP 96/48
[2020-12-07 04:58] LABS: HEMATOCRIT 34.6 % (42.0-52.0); HEMOGLOBIN 11.7 gm/dL (14.0-18.0); MCH 29.5 pg (26.0-34.0); MCHC 33.8 g/dL (28.0-37.0); MCV 87.2 fL (80.0-100.0); MPV 7.9 fl. (7.2-11.1); RBC 3.97 mil/uL (4.50-6.00); RDW-CV 16.4 % (10.5-14.5); WBC 8.3 thou/uL (4.0-11.0)
[2020-12-07 05:11] LABS: CALCIUM 8.6 mg/dL (8.5-10.1); CREATININE 1.1 mg/dL (0.6-1.3); POTASSIUM 3.5 mmol/L (3.5-5.1)
[2020-12-07 08:00] VITALS: BP 103/51
[2020-12-07 10:52] LABS: INR 2.7; PROTIME 26.8 Seconds (9.20-11.50)
[2020-12-07 11:20] VITALS: BP 104/68
[2020-12-07 16:12] VITALS: BP 111/68
[2020-12-07 20:00] VITALS: BP 121/76
[2020-12-08] VITALS: BP 113/49
[2020-12-08 04:00] VITALS: BP 108/64
[2020-12-08 04:48] LABS: HEMATOCRIT 33.5 % (42.0-52.0); HEMOGLOBIN 11.4 gm/dL (14.0-18.0); MCH 29.8 pg (26.0-34.0); MCHC 34.1 g/dL (28.0-37.0); MCV 87.3 fL (80.0-100.0); MPV 7.8 fl. (7.2-11.1); RBC 3.83 mil/uL (4.50-6.00); RDW-CV 16.3 % (10.5-14.5); WBC 8.1 thou/uL (4.0-11.0)
[2020-12-08 04:52] LABS: INR 2.3; PROTIME 23.5 Seconds (9.20-11.50)
[2020-12-08 04:58] LABS: CALCIUM 8.3 mg/dL (8.5-10.1); CREATININE 1.1 mg/dL (0.6-1.3); POTASSIUM 3.7 mmol/L (3.5-5.1)
[2020-12-08 08:00] VITALS: BP 118/70
[2020-12-08 11:02] VITALS: BP 107/64
[2020-12-08 17:06] VITALS: BP 112/60
[2020-12-08 20:00] VITALS: BP 129/71
[2020-12-09 00:37] VITALS: BP 133/74
[2020-12-09 05:02] LABS: HEMATOCRIT 31.5 % (42.0-52.0); HEMOGLOBIN 10.9 gm/dL (14.0-18.0); MCH 30.2 pg (26.0-34.0); MCHC 34.6 g/dL (28.0-37.0); MCV 87.1 fL (80.0-100.0); MPV 7.5 fl. (7.2-11.1); RBC 3.62 mil/uL (4.50-6.00); RDW-CV 16.1 % (10.5-14.5); WBC 7.4 thou/uL (4.0-11.0)
[2020-12-09 05:08] LABS: INR 1.6; PROTIME 16.4 Seconds (9.20-11.50)
[2020-12-09 05:18] LABS: CALCIUM 8.2 mg/dL (8.5-10.1); CREATININE 1.2 mg/dL (0.6-1.3); POTASSIUM 3.8 mmol/L (3.5-5.1)
[2020-12-09 08:00] VITALS: BP 119/62
[2020-12-09 12:00] VITALS: BP 118/72
[2020-12-09 16:00] VITALS: BP 161/90
[2020-12-09 20:20] VITALS: BP 153/77
[2020-12-10] VITALS (10 sets, daily range): BP systolic 102–134; BP diastolic 53–75
[2020-12-10 04:08] LABS: HEMATOCRIT 32.1 % (42.0-52.0); MCH 29.8 pg (26.0-34.0); MCHC 34.4 g/dL (28.0-37.0); MCV 86.7 fL (80.0-100.0); MPV 7.3 fl. (7.2-11.1); RBC 3.71 mil/uL (4.50-6.00); RDW-CV 16.1 % (10.5-14.5); WBC 7.3 thou/uL (4.0-11.0)
[2020-12-10 04:29] LABS: CALCIUM 8.8 mg/dL (8.5-10.1); POTASSIUM 3.5 mmol/L (3.5-5.1)
[2020-12-10 04:34] LABS: INR 1.5
--- NOTE | 2020-12-10 16:15 | TEE ---
[place] [address] TRANSESOPHAGEAL ECHOCARDIOGRAM Name: JULIO PEDROZA Room: [address] IN ..#: [id number] Admission: 12/07/20 Attend Phys: Andrea John Discharge: Date of : 61 Date of Service: 12/10/20 1615 Report #: [id number] THIS REPORT FOR: cc: Chato Ritter MD, Dylan MD Blick,Jean-Claude Power MD [facility] ~ APPROVED REPORT Study performed: 12/10/2020 13:46:49 EXAM: Comprehensive 2D, Doppler, and color-flow Echocardiogram Patient Location: In-Patient Room #: [facility] Status: routine BSA: 2.33 HR: 100 bpm BP: 132/75 mmHg Rhythm: NSR Other Information Study Quality: Good Indications Aortic Valve Disease BACTEREMIA, AVR Echo Enhancing Agent Indication: Rule out Shunt Agent(s) / Amount(s) Used: Agitated Saline 10 cc Procedure After obtaining informed consent, patient underwent transesophageal echo in the [employer]. Type of Sedation : Conscious Sedation Sedation was administered by Sheridan Khanna RN. Sedation start time: 1409 Case end Time: 1424 Sedation was achieved intravenously with: Versed (5) Fentanyl (50) Transesophageal probe was inserted and advanced into esophagus without difficulty by Jean-Claude Mast MD, [facility]. Echo enhancement indication: R/O Septal defect. Echo enhancement agent administered: Agitated Saline The EMILIE was [place] [address] TRANSESOPHAGEAL ECHOCARDIOGRAM Name: KASIAJULIO Everette Room: [address] IN M.R.#: [id number] Admission: 12/07/20 Attend Phys: Andrea John Discharge: Date of : 61 Date of Service: 12/10/20 1615 Report #: [id number] Throughout the procedure, the blood pressure, pulse oximetry, cardiac rhythm, and rate were monitored. The patient tolerated the procedure without adverse effects. Recovery from conscious sedation was uneventful and vital signs were stable. Left Ventricle The left ventricle is normal size. There is normal LV segmental wall motion. There is normal left ventricular wall thickness. Left ventricular systolic function is normal. The left ventricular ejection fraction is within the normal range. LVEF is 60-65%. Right Ventricle The right ventricle is normal size. The right ventricular systolic function is normal. Atria The left atrium size is normal. No thrombus is visualized in the left atrium or appendage. Small PFO is noted. The right atrium size is normal. Aortic Valve Mechanical aortic valve is present. No aortic regurgitation is present. There is no aortic valvular vegetation. There is no aortic valvular stenosis. Mitral Valve The mitral valve is normal in structure. Trace mitral regurgitation. No evidence of mitral valve stenosis. Tricuspid Valve The tricuspid valve is normal in structure. Mild tricuspid regurgitation. Pulmonic Valve The pulmonary valve is normal in structure. There is no pulmonic valvular regurgitation. Great Vessels The aortic root is normal in size. Pericardium There is no pericardial effusion. <Conclusion> LVEF is 60-65%. [place] [address] TRANSESOPHAGEAL ECHOCARDIOGRAM Name: JULIO PEDROZA Room: [address] IN [facility].#: [id number] Admission: 12/07/20 Attend Phys: Andrea John Discharge: Date of : 61 Date of Service: 12/10/201614 Report #: [id number] The left atrium size is normal. No thrombus is visualized in the left atrium or appendage. Small PFO is noted. Mechanical aortic valve is present. There is no aortic valvular vegetation. <ELECTRONICALLY SIGNED> By: Jean-Claude Mast MD, FACC 12/10/201614 14 14 Jean-Claude Mast MD, FACC /INF
[2020-12-11] VITALS: BP 123/69
[2020-12-11 04:00] VITALS: BP 108/70
[2020-12-11 04:20] LABS: INR 1.6; PROTIME 16.4 Seconds (9.20-11.50)
[2020-12-11 16:00] VITALS: BP 112/71
[2020-12-11 20:00] VITALS: BP 112/57
[2020-12-12] VITALS: BP 102/60
[2020-12-12 04:00] VITALS: BP 108/66
[2020-12-12 05:05] LABS: HEMATOCRIT 32.3 % (42.0-52.0); HEMOGLOBIN 10.8 gm/dL (14.0-18.0); MCH 29.4 pg (26.0-34.0); MCHC 33.5 g/dL (28.0-37.0); MCV 87.9 fL (80.0-100.0); MPV 7.4 fl. (7.2-11.1); RBC 3.68 mil/uL (4.50-6.00); RDW-CV 16.5 % (10.5-14.5)
[2020-12-12 05:23] LABS: CALCIUM 8.6 mg/dL (8.5-10.1); CREATININE 1.1 mg/dL (0.6-1.3); POTASSIUM 4.1 mmol/L (3.5-5.1)
[2020-12-12] MEDS ORDERED: HYDROCODON-ACE1 EAC7 PO (07:30)
[2020-12-12] MEDS ORDERED: ZYVOX600 MG PO (07:30)
[2020-12-12] MEDS ORDERED: GLYBURIDE 5 MG T5 M1 PO (07:30)
[2020-12-12] MEDS ORDERED: GLUCOPHAGE500 MG PO (07:30)
[2020-12-12 08:15] VITALS: BP 96/50
[2020-12-12 12:00] VITALS: BP 106/62
[2020-12-12 14:10] LABS: INR 1.6; PROTIME 16.9 Seconds (9.20-11.50)
[2020-12-12 16:00] VITALS: BP 121/67
[2020-12-12 20:09] VITALS: BP 109/64
[2020-12-13] VITALS (7 sets, daily range): BP systolic 100–155; BP diastolic 57–92
[2020-12-13 05:30] LABS: HEMATOCRIT 31.7 % (42.0-52.0); HEMOGLOBIN 10.6 gm/dL (14.0-18.0); MCH 29.4 pg (26.0-34.0); MCHC 33.5 g/dL (28.0-37.0); MPV 7.2 fl. (7.2-11.1); RBC 3.6 mil/uL (4.50-6.00); RDW-CV 15.9 % (10.5-14.5); WBC 6.9 thou/uL (4.0-11.0)
[2020-12-13 05:35] LABS: INR 1.6; PROTIME 16.1 Seconds (9.20-11.50)
[2020-12-13 05:41] LABS: CALCIUM 8.2 mg/dL (8.5-10.1); POTASSIUM 3.9 mmol/L (3.5-5.1)
[2020-12-14] VITALS: BP 115/60
[2020-12-14 04:00] VITALS: BP 133/58
[2020-12-14 07:56] LABS: HEMATOCRIT 33.1 % (42.0-52.0); MCH 29.1 pg (26.0-34.0); MCHC 33.3 g/dL (28.0-37.0); MCV 87.5 fL (80.0-100.0); MPV 7.2 fl. (7.2-11.1); RBC 3.78 mil/uL (4.50-6.00)
[2020-12-14 08:12] LABS: CALCIUM 8.7 mg/dL (8.5-10.1); POTASSIUM 3.8 mmol/L (3.5-5.1)
[2020-12-14 08:30] VITALS: BP 132/60
[2020-12-14 13:45] VITALS: BP 128/73
[2020-12-14 15:45] VITALS: BP 128/73
--- NOTE | 2020-12-17 18:06 | PATH ---
[facility] [address] [place] [address] PATHOLOGY RPT PROCEDURE Name: SHABBIR PEDROZA Everette Room: [address] IN M.R.#: [id number] Admission: 12/07/20 Date of : 61 Discharge: 12/14/20 Report #: [id number] Path Case #: [id number] [facility] Accession Number: [id number] . 01 Material submitted: . toe - RIGHT 3RD TOE. Modifiers: right, third . 01 Clinical history: . FEVER,HX DM FOOT ULCER AMPUTATION OF TOES TENDON TENOTOMY OSTEOMYELITIS RIGHT TOE . 02 Diagnosis: Right third toe: - Benign toe with nonspecific distal ulceration and osteomyelitis of underlying phalangeal bone. - Proximal disarticulation margin free of osteomyelitis. (DES:ko; 12/17/2020) PHYLLIS 12/17/2020 1334 Local . 02 Electronically signed: . Austen Orozco MD, Pathologist NPI- [id number] . 01 Gross description: . Received in formalin labeled "Shabbir Pedroza and right third toe". Received is an amputated toe measuring 6.4 x 1.8 x 1.8 cm. The skin surface is flaked, mottled pale white. The nail is thickened yellow measuring 0.7 x 0.6 x 0.3 cm. The distal end beneath the nail has an ulcerated lesion measuring 1.0 x 0.6 x 0.4 cm. The articular surface is smooth and concave. The articular surface is inked black, surgical margin skin is inked blue, and the distal ulcerated lesion is inked green. Sectioning reveals spongy cortex with a focal white lesion measuring 1.0 x 0.6 x 0.6 cm located distally below the nail bed. The specimen is representatively submitted in cassettes A1-A5 after decalcification. A1-proximal surgical end (black ink) A2 middle phalanx A3-distal phalanx with cortex lesion A4 distal phalanx nail and distal ulcerated lesion (green ink) A5-surgical margin skin (blue ink) ([facility]; 12/15/2020) [facility] 12/15/2020 1731 Local . 02 Pathologist provided ICD-10: L97.519, M86.171 . 02 [facility] [place] [address] PATHOLOGY RPT PROCEDURE Name: SHABBIR PEDROZA Room: [address] IN M.R.#: [id number] Admission: 12/07/20 Date of : 61 Discharge: 12/14/20 Report #: [id number] Path Case #: [id number] Specimen Comment: A courtesy copy of this report has been sent to [phone] Specimen Comment: [id number], Specimen Comment: Report sent to ,DR CANTU / DR FULTON Performed at: 01 [facility] [id number] [address], [place] [id number] MD Russell Barrow MD Phone: [phone] Performed at: 02 [facility] [address], [place], [place] [id number] MD Austen Orozco MD Phone: [phone]
== END 2020-12-14 16:30 | disposition home health service (06) | DRG 853 ==
LOC: M.ERS 20:56 → M.TBA-ER 23:25 → M.2W 12-06 02:04
PROVIDERS: Emergency Medicine; Family Medicine; ADMIT Internal Medicine; ATTEND Internal Medicine
PROC: B24BZZ4 Ultrasonography of Heart with Aorta, Transesophageal (ICD-10-PCS; 2020-12-10)
PROC: 0Y6T0Z0 Detachment at Right 3rd Toe, Complete, Open Approach (ICD-10-PCS; principal; 2020-12-11)
PROC: 0LNV0ZZ Release Right Foot Tendon, Open Approach (ICD-10-PCS; principal; 2020-12-11)
DX: A41.9 Sepsis, unspecified organism (principal); J18.9 Pneumonia, unspecified organism; N17.0 Acute kidney failure with tubular necrosis; T88.3XXA Malignant hyperthermia due to anesthesia, initial encounter; Z68.41 Body mass index [BMI] 40.0-44.9, adult; E87.1 Hypo-osmolality and hyponatremia; M86.8X7 Other osteomyelitis, ankle and foot; I10 Essential (primary) hypertension; E11.40 Type 2 diabetes mellitus with diabetic neuropathy, unspecified; Y83.8 Other surgical procedures as the cause of abnormal reaction of the patient, or of later complication, without mention of misadventure at the time of the procedure; Y82.8 Other medical devices associated with adverse incidents; I48.0 Paroxysmal atrial fibrillation; E11.621 Type 2 diabetes mellitus with foot ulcer; L97.511 Non-pressure chronic ulcer of other part of right foot limited to breakdown of skin; E66.01 Morbid (severe) obesity due to excess calories; G47.30 Sleep apnea, unspecified; M20.41 Other hammer toe(s) (acquired), right foot; E11.69 Type 2 diabetes mellitus with other specified complication; Z20.822 Contact with and (suspected) exposure to COVID-19; Y92.89 Other specified places as the place of occurrence of the external cause; Z95.4 Presence of other heart-valve replacement; Z86.16 Personal history of COVID-19; Z79.01 Long term (current) use of anticoagulants; Z79.899 Other long term (current) drug therapy